=== PATIENT | male | born 1935 | race Caucasian/White ===

== ENCOUNTER 2016-07-05 03:15 | Emergency (ER) | payer OTHER ==
[2016-07-05 03:23] VITALS: BP 135/96; PULSE 93; RESP 20; TEMP 97.5; O2SAT 93
--- NOTE | 2016-07-05 03:36 | EDPHY ---
H & P Stated Complaint: diff breathing with prod cough starting tonight Time Seen by Provider: 07/05/16 03:27 HPI/ROS: HPI The patient presents with cough which has been present for the last 6 months intermittently but was worse tonight. He often times experiences it at night, productive of phlegm. He awakes, cough several times and is able to produce of phlegm, then is able to go back to sleep. However, tonight he was not able to go back to sleep and was concerned. He has not had any fevers or chills. He does not have chest pain. He has not had any rhinorrhea or sore throat. He says he felt short of breath when he was coughing, however now he feels fine. He believes he over produces saliva, because of a dental bridge that he has and this causes him to cough. He wonders if anxiety is playing a role. REVIEW OF SYSTEMS Constitutional: No fever, no chills. Eyes: No discharge. ENT: No sore throat. Cardiovascular: No chest pain, no palpitations. Respiratory: See HPI Gastrointestinal: No abdominal pain, no vomiting. Genitourinary: No hematuria. Musculoskeletal: No back pain. Skin: No rashes. Neurological: No headache. PMHx: History of asthma, though says he does not have any symptoms currently Soc Hx: Lives at home with his PHYSICAL General Appearance: Alert, no distress Eyes: Pupils equal and round no pallor or injection ENT, Mouth: Mucous membranes moist Respiratory: There are no retractions, lungs are clear to auscultation Cardiovascular: Regular rate and rhythm Gastrointestinal: Abdomen is soft and non-tender, no masses, bowel sounds normal Neurological: A&O, moves all extremities Skin: Warm and dry, no rashes Musculoskeletal: Neck is supple non tender Extremities: symmetrical, full range of motion Psychiatric: Patient is oriented X 3, there is no agitation Source: Patient Exam Limitations: No limitations - Personal History Current Tetanus/Diphtheria Vaccine: Yes Current Tetanus Diphtheria and Acellular Pertussis (TDAP): Yes Tetanus Vaccine Date: less than 5 years - Medical/Surgical History Hx Asthma: Yes Hx Chronic Respiratory Disease: No Hx Diabetes: No Hx Cardiac Disease: No Hx Renal Disease: No Hx Cirrhosis: No Hx Alcoholism: No Hx HIV/AIDS: No Hx Splenectomy or Spleen Trauma: No Other PMH: BPH, GERD, heart murmur, asthma. bilateral ACL repairs, left lower leg ORIF - Social History Smoking Status: Never smoked Constitutional: Initial Vital Signs Temperature (C) 36.4 C 07/05/16 03:20 Heart Rate 93 07/05/16 03:20 Respiratory Rate 20 07/05/16 03:20 Blood Pressure 135/96 H 07/05/16 03:20 O2 Sat (%) 93 07/05/16 03:20 O2 Delivery Mode Room Air Allergies/Adverse Reactions: Penicillins Allergy (Verified 07/05/16 03:18) Home Medications: Medication Instructions Recorded For Gerd 07/05/16 For Prostate 07/05/16 Medical Decision Making - Diagnostics Imaging: Chest x-ray two view shows no infiltrate, no cardiomegaly, interpreted by me, radiology interpretation is pending. Differential Diagnosis: This is a very pleasant 80-year-old man with remote history of asthma who presents from home with a cough which woke him from sleep tonight, now resolved. He has been having this cough intermittently for the last 6 months at night since he had a dental bridge put in. He thinks this is causing excessive saliva production. Differential diagnosis includes postnasal drip, GERD, pneumonia. In the emergency room, chest x-ray was performed and was unremarkable. I think he likely has postnasal drip or excessive saliva causing his cough and I have explained this to him. I will give him a dose of Sudafed he here and he has Mucinex at home. I have encouraged him to follow up with his primary care doctor this week and he says he will be able to do this. Departure - Departure Disposition: Home, Routine, Self-Care Clinical Impression: Post-nasal drip Condition: Good Instructions: Pseudoephedrine (By mouth), Antitussive/Decongestant (By mouth) Additional Instructions: Please return to the emergency room if your worse in any way. You should follow up with your doctor this week. Referrals: LUÍS LYNN [Primary Care Provider] - As per Instructions
[2016-07-05] MEDS ORDERED: PSEUDOEPHEDRINE HCL 30 MG TAB PO ONE (03:49)
== END 2016-07-05 04:10 | disposition home or self-care (01) ==
DX: R09.82 Postnasal drip (principal); J45.909 Unspecified asthma, uncomplicated

== ENCOUNTER 2016-07-18 20:54 | Inpatient (IN) | payer OTHER ==
--- NOTE | 2016-07-18 22:17 | CPEKG ---
Heart Rate: 59 RR Interval: 1017 P-R Interval: 212 QRSD Interval: 78 QT Interval: 420 QTC Interval: 416 P [place]: 74 QRS [place]: 18 T Wave [place]: 54 EKG Severity - NORMAL ECG - EKG Impression: SINUS RHYTHM Electronically Signed By: Phoebe Liang 19-Jul-2016 16:27:15
[2016-07-18 22:39] LABS: % IMMATURE GRANULYOCYTES 0.4 % (0.0-1.1); ABSOLUTE IMMATURE GRANULOCYTES 0.03 10^3/uL (0.00-0.10); ADD DIFF? NO; ADD MORPH? NO; ADD SCAN? NO; ATYPICAL LYMPHOCYTE FLAG 0 (0-99); FRAGMENT RBC FLAG 0 (0-99); HEMATOCRIT 37.4 % (40.0-51.0); HEMOGLOBIN 13.9 g/dL (13.7-17.5); LEFT SHIFT FLG 0 (0-99); LIPEMIA HEMOLYSIS FLAG 90 (0-99); MEAN CELL HEMOGLOBIN 33.1 pg (27.9-34.1); MEAN CELL HEMOGLOBIN CONCENTR. 37.2 g/dL (32.4-36.7); MEAN PLATELET VOLUME 10.8 fL (8.7-11.7); PLATELET CLUMPS FLAG 10 (0-99); PLATELET COUNT 184 10^3/uL (150-400); RED CELL DISTRIBUTION WIDTH 13.4 % (11.5-15.2)
[2016-07-18 22:41] LABS: ALANINE AMINOTRANSFERASE 59 IU/L (21-72); ALBUMIN 4.1 g/dL (3.5-5.0); ALKALINE PHOSPHATASE 72 IU/L (38-126); ANION GAP 11 mEq/L (8-16); ASPARTATE AMINOTRANSFERASE 48 IU/L (17-59); BILIRUBIN-CONJUGATED 0.8 mg/dL (0.0-0.5); BILIRUBIN-UNCONJUGATED 2.2 mg/dL (0.0-1.1); CALCIUM 8.9 mg/dL (8.5-10.4); CARBON DIOXIDE 23 mEq/l (22-31); CHLORIDE 110 mEq/L (97-110); CREATININE 0.8 mg/dL (0.7-1.3); GLOMERULAR FILTRATION RATE > 60; GLUCOSE 108 mg/dL (70-100); POTASSIUM 4.1 mEq/L (3.5-5.2); SODIUM 144 mEq/L (134-144)
[2016-07-18 22:51] LABS: COLOR AMBER; LEUKOCYTE ESTERASE,URINE 2+ (NEGATIVE); NITRITE,URINE NEGATIVE (NEGATIVE)
[2016-07-18 22:52] LABS: TROPONIN I < 0.012 ng/mL (0-0.034)
[2016-07-18 23:03] LABS: BACTERIA 1+ /hpf (NONE SEEN); MUCUS TRACE /lpf (NONE-1+); WBC,URINE 50-182 /hpf (0-3)
--- NOTE | 2016-07-18 23:32 | EDPHY ---
H & P Stated Complaint: abd pain - Personal History Current Tetanus/Diphtheria Vaccine: Yes Current Tetanus Diphtheria and Acellular Pertussis (TDAP): Yes Tetanus Vaccine Date: less than 5 years - Medical/Surgical History Hx Asthma: Yes Hx Chronic Respiratory Disease: No Hx Diabetes: No Hx Cardiac Disease: No Hx Renal Disease: No Hx Cirrhosis: No Hx Alcoholism: No Hx HIV/AIDS: No Hx Splenectomy or Spleen Trauma: No Other PMH: BPH, GERD, heart murmur, asthma. bilateral ACL repairs, left lower leg ORIF - Social History Smoking Status: Never smoked Time Seen by Provider: 07/18/16 21:20 HPI/ROS: Chief complaint: Abdominal pain History of present illness: This is an 81-year-old male who presents to the emergency department for evaluation of abdominal pain. Patient reports the onset of symptoms this afternoon. He reports the onset of pain after eating a sandwich and a piece of cake. Has been intermittent in nature. It is in the epigastric and right upper quadrant region. He has had associated nausea and vomiting. He denies alleviating factors. He denies other associated signs or symptoms including no fevers, no diarrhea or constipation, no urinary symptoms, no chest pain or shortness of breath. Review of systems: A 10 point review of systems was obtained and other than described above was negative (Nikhil Mccoy) - Physical Exam Exam: General Appearance: Alert, nontoxic, tremulous. Eyes: Pupils equal and round no pallor or injection. ENT, Mouth: Mucous membranes moist. Respiratory: There are no retractions, lungs are clear to auscultation. Cardiovascular: Regular rate and rhythm. Gastrointestinal: Bowel sounds hypoactive. Abdomen is soft. There is minor tenderness in epigastric and right upper quadrant. No peritoneal signs. Neurological: Alert and oriented. Strength and sensation intact and symmetrical. Skin: Warm and dry, no rashes. Musculoskeletal: Neck is supple non tender. Etremities are symmetrical, full range of motion. Psychiatric: Patient is oriented X 3, there is no agitation. (Nikhil Mccoy) Constitutional: Initial Vital Signs Temperature (C) 36.8 C 07/18/16 21:09 Heart Rate 69 07/18/16 21:09 Respiratory Rate 16 07/18/16 21:09 Blood Pressure 139/72 H 07/18/16 21:09 O2 Sat (%) 99 07/18/16 21:09 O2 Delivery Mode Room Air Allergies/Adverse Reactions: Penicillins Allergy (Verified 07/18/16 21:04) Home Medications: Medication Instructions Recorded Omeprazole [Prilosec 20 mg] 20 mg PO DAILY 07/05/16 Beclomethasone Qvar 80 [Qvar 80 1 puffs IH BIDI 07/18/16 (*)] Finasteride [Proscar 5 MG (*)] 5 mg PO DAILY 07/18/16 Fluticasone Nasal [Flonase Nasal 1 sprays NASAL BID 07/18/16 [place] (RX)] Medical Decision Making - Diagnostics EKG Interpretation: Twelve lead EKG interpreted by me in [facility]. Sinus rhythm without acute ischemic changes. (Debbie Dennison) Imaging: Right upper quadrant ultrasound shows multiple gallstones One view abdominal x-ray consistent constipation (Nikhil Mccoy) ED Course/Re-evaluation: Patient discussed with my secondary supervising physician Dr. Debbie Dennison. Patient presents to the emergency department for evaluation of abdominal pain. Ultimately he appears to have a pancreatitis. Patient will be admitted to the hospitalist service, Dr. Patricia Mcmahan, for further evaluation and care. Plan has been discussed with the patient voiced understanding and agreement with it. (Nikhil Mccoy) Differential Diagnosis: Included but not limited to gastritis, gastroenteritis, biliary tract disease, pancreatitis, colitis, bowel obstruction, urinary tract disease (Nikhil Mccoy) Other Provider: The patient was evaluated and managed by the physician market research assistant. I have reviewed this chart and I agree with the findings and plan of care as documented , as indicated by my signature. I am the secondary supervising physician. This patient is an 81 year old male with acute RUQ and epigastric pain of over 8 hours duration, waxing and waning. The pain began after eating. He has never had similar pain. No fever. He denies nausea, vomiting (other than one episode of induced emesis), diarrhea, dysuria, back or flank pain. On exam his lungs are clear, abdomen with RUQ and midepigastric tenderness but no peritoneal signs, heart is regular. CBC shows nl WBC. Bilirubin and lipase are elevated. Ultrasound shows cholelithiasis without cholecystitis. UA is abnormal but he remains without urinary symptoms and I do not recommend antibiotics at this time. Urine is being cultured. He is being admitted with gallstone pancreatitis. (Debbie Dennison) - Data Points Laboratory Results: Laboratory Results 07/18/16 22:02 07/18/16 22:02 Medications Given: Discontinued Medications Lorazepam (Ativan Injection) 0.5 - 1 mg IVP ONCE PRN PRN Reason: X 1 FOR ANXIETY Stop: 07/19/16 07:00 Last Admin: 07/19/16 02:06 Dose: 0.5 mg Departure - Departure Disposition: [facility] Inpatient Acute Clinical Impression: Pancreatitis Qualifiers: Chronicity: acute Pancreatitis type: unspecified pancreatitis type Acute pancreatitis complication: unspecified Qualified Code(s): K85.90 - Acute pancreatitis without necrosis or infection, unspecified Condition: Fair
[2016-07-19] MEDS ORDERED: ONDANSETRON 4 MG/2 ML VIAL IVP PRN (00:41)
[2016-07-19] MEDS ORDERED: ONDANSETRON DISINTEGRATING 4 MG TAB PO PRN (00:41)
[2016-07-19] MEDS ORDERED: ACETAMINOPHEN 325 MG TAB PO PRN (00:41)
[2016-07-19] MEDS: ZOLPIDEM TARTRATE 5 MG TAB PO PRN ×2 (00:58→20:02)
--- NOTE | 2016-07-19 01:30 | GHP ---
DATE OF ADMISSION: 07/18/2016 CHIEF COMPLAINT: Abdominal pain. HISTORY OF PRESENT ILLNESS: A very pleasant 81-year-old male with limited past medical history pres ents with sudden onset of epigastric and right upper quadrant pain the afternoon of presentation. P leonardo reports being in his normal state of health for the several days prior with no abdominal disc omfort, subjective fevers or chills, nausea, vomiting, or changes in his bowel habits. Reports kobi ng himself a sandwich with pork tenderloin he had prepared and developing sudden onset of sharp pene trating epigastric pain soon after eating that sandwich. Patient's says the pain spontaneously reso lved and afterward, he ate some birthday cake and then had recurrence of the pain, again sharp, epig astric, and some radiation to the right upper quadrant. He forced himself to vomit thinking that po tentially, he had eaten something bad, and the pain did not resolve even after forceful vomiting. T herefore, the patient presented to the emergency department. Denied any preceding nausea or vomitin g. Denied again any diarrhea, changes in his bowel habits. Reports a history of BPH but no recent dysuria or hematuria. Patient denied any rashes, chest pain, shortness of breath, sore throat. Has had some nasal congestion his primary care has been treating with Flonase. That has been unchanged . Patient has never had an episode of epigastric pain similar to this or any history of preceding p ancreatitis. PAST MEDICAL HISTORY: 1. BPH. 2. Gastroesophageal reflux disease. 3. New tremor of the hands. Has outpatient Neurology scheduled. 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 Denies tobacco. Very rare alcohol. No illicit drugs or marijuana. ADVANCED DIRECTIVES: Patient is full cor, full tube. His daughter, Aquiles, would be his medical dec ision maker. REVIEW OF SYSTEMS: A 10-point review of systems is negative with the exception of that reported in the HPI. PHYSICAL EXAMINATION: VITAL SIGNS: Blood pressure 134/75, heart rate 75, respiratory rate 16, 95% on room air, 36.8. GENERAL: This is a very healthy-appearing elderly male in no acute distress. H EENT: Notable for moist mucous membranes. Eye exam is negative for any icterus. CARDIAC: Patient is regular rate and rhythm. PULMONARY: Good respiratory effort. Clear to auscultation bilaterall y. GASTROINTESTINAL: Positive bowel sounds. Abdomen is tender to palpation in the epigastrium as well as the right upper quadrant. No rebound or guarding. MUSCULOSKELETAL: Negative for any lower extremity edema. SKIN: Negative for any rashes. NEUROLOGIC: He is alert and oriented x3. PSYCH IATRIC: He is pleasant and cooperative on interview and examination. DATA: White count is normal at 7.7, hematocrit 37.4. Creatinine is 0.8, total bilirubin elevated a t 3.0. AST and ALT are normal. Troponin is less than 0.012. Lipase is elevated at 4765. Urinalys is is abnormal with protein, ketones, blood, and white blood cells. Abdominal x-ray, which I person ally reviewed and interpreted, shows no dilated loops or findings consistent with small bowel obstru ction. EKG, which I personally reviewed and interpreted, shows sinus rhythm, normal axis, normal in tervals, with no acute ST-T changes. Abdominal ultrasound, which I reviewed, does show cholelithias is without cholecystitis. ASSESSMENT AND PLAN: This is an 81-year-old male presenting with acute abdominal pain. 1. Acute pancreatitis presumed secondary to gallstones. Patient has elevation in his bilirubin, vi sualized stones on ultrasound, and pain consistent, as well as a lipase greater than 4000. Will adm it the patient. Make him n.p.o. Fluid resuscitate with IV normal saline. Provide IV pain medicati ons as needed. Will recheck the patient's liver function tests, lipase, and lipids to monitor his c linical progression. My hope is the patient has passed the stone and will be clinically improved in the morning and able to advance his diet. Will simply need to monitor his clinical progression. 2. Abnormal urinalysis. Patient did not have symptoms at presentation. No leukocytosis, no fever. Will send the urine for culture, but not empirically treat at this time. 3. Benign prostatic hypertrophy. Will continue his home medications when his medicines are reconci led. He denies difficulty passing urine on presentation. 4. Normocytic anemia. Will recheck CBC in the morning. 5. Prophylaxis: With Lovenox. 6. Diet: N.p.o. with IV fluids. DISPOSITION: Expecting greater than 2 midnights as the patient is presenting with acute pancreatiti s requiring medical management. Difficult to ascertain what his clinical course will be at this seven e but suspect it will require greater than 1 midnight to safely hydrate and advance his diet. I hav e discussed the case with the emergency room physician. Patient will be triaged to the medical[facility] floor for care. /[id number]/MODL
[2016-07-19] MEDS: NS 1,000 ML IV SCH ×3 (01:41→18:18)
[2016-07-19] MEDS ORDERED: LORazepam 2 MG/ML INJ IVP PRN (02:00)
[2016-07-19 05:17] LABS: % IMMATURE GRANULYOCYTES 0.2 % (0.0-1.1); ABSOLUTE IMMATURE GRANULOCYTES 0.01 10^3/uL (0.00-0.10); ADD DIFF? NO; ADD MORPH? NO; ADD SCAN? NO; ATYPICAL LYMPHOCYTE FLAG 0 (0-99); FRAGMENT RBC FLAG 0 (0-99); HEMATOCRIT 33.9 % (40.0-51.0); HEMOGLOBIN 12.7 g/dL (13.7-17.5); LEFT SHIFT FLG 0 (0-99); MEAN CELL HEMOGLOBIN 34.1 pg (27.9-34.1); MEAN CELL HEMOGLOBIN CONCENTR. 37.5 g/dL (32.4-36.7); MEAN CELL VOLUME 91.1 fL (81.5-99.8); MEAN PLATELET VOLUME 11.1 fL (8.7-11.7); PLATELET CLUMPS FLAG 0 (0-99); PLATELET COUNT 174 10^3/uL (150-400); RED BLOOD CELL COUNT 3.72 10^6/uL (4.40-6.38); RED CELL DISTRIBUTION WIDTH 13.2 % (11.5-15.2)
[2016-07-19 05:34] LABS: LIPEMIA HEMOLYSIS FLAG 100 (0-99)
[2016-07-19 05:39] LABS: ALANINE AMINOTRANSFERASE 43 IU/L (21-72); ALBUMIN 3.5 g/dL (3.5-5.0); ALKALINE PHOSPHATASE 61 IU/L (38-126); ANION GAP 8 mEq/L (8-16); ASPARTATE AMINOTRANSFERASE 35 IU/L (17-59); BILIRUBIN,TOTAL 3.1 mg/dL (0.1-1.4); CALCIUM 8.6 mg/dL (8.5-10.4); CARBON DIOXIDE 25 mEq/l (22-31); CHLORIDE 111 mEq/L (97-110); CHOLESTEROL 131 mg/dL (140-220); CHOLESTEROL/HDL RATIO 2.98 RATIO (1.00-4.97); CREATININE 0.8 mg/dL (0.7-1.3); GLOMERULAR FILTRATION RATE > 60; GLUCOSE 94 mg/dL (70-100); HIGH DENSITY LIPOPROTEIN 44 mg/dL (40-65); LDL/HDL RATIO 1.73 RATIO (1.00-3.64); LOW DENSITY LIPOPROTEIN 76 mg/dL (80-100); NON-HIGH DENSITY LIPOPROTEIN 87 mg/dL (90-129); SODIUM 144 mEq/L (134-144); TOTAL PROTEIN 6.1 g/dL (6.3-8.2); TRIGLYCERIDE 58 mg/dL (40-150); VERY LOW DENSITY LIPOPROTEINS 11 mg/dL (8-25)
[2016-07-19 05:45] LABS: BILIRUBIN-CONJUGATED 0.3 mg/dL (0.0-0.5); BILIRUBIN-UNCONJUGATED 2.8 mg/dL (0.0-1.1)
[2016-07-19] MEDS: ENOXAPARIN 40 MG/0.4 ML SYR SC SCH (08:31)
--- NOTE | 2016-07-19 08:42 | HOSPPROG ---
Hospitalist Progress Note Assessment/Plan: Patient is a 81 Year old male who presented to the emergency room with sudden onset of epigastric and right upper quadrant pain. Today is my 1st encounter with the patient. Chart reviewed. * Acute pancreatitis most likely secondary to gallstones - bilirubin remains elevated - LFTs were overall stable - abdominal ultrasound shows cholelithiasis without gallbladder wall thickening - abdominal x-ray shows constipation - for now we will give supportive treatment he may need his gallbladder out in the future - discussed this with Dr Ling who will see the patient - symptoms have completely resolved/ will continue iv fluids/ trial of cl liquids - lipase 4765 on admit, now 1210 *pyuria with hematuria -urine cx pending -no c/o pain *BPH -home meds continued *Normocytic anemia -follow *stressors at home -his has Parkinson's / he is concerned about her/ for now his son is with her *DVT prophylaxis -LMWH *PLan: Repeat labs in a.m./ Dr Ling to see, cl liquids Subjective: rafael has no further abdominal pain and wants to eat. Objective: Vital Signs Temp Pulse Resp BP Pulse Ox 36.4 C 56 L 16 129/72 H 94 07/19/16 07:50 07/19/16 07:50 07/19/16 07:50 07/19/16 07:50 07/19/16 07:50 Laboratory Results 07/19/16 04:41 07/19/16 04:41 07/18/16 07/19/16 07/20/16 05:59 05:59 05:59 Intake Total 650 Balance 650 - Physical Exam Constitutional: no apparent distress, other (slender) Eyes: PERRL Ears, Nose, Mouth, Throat: hearing normal Cardiovascular: regular rate and rhythym, no murmur, rub, or gallop Respiratory: no respiratory distress Skin: warm, normal color Musculoskeletal: no muscle tenderness Neurologic: AAOx3 Psychiatric: interacting appropriately, not anxious ICD10 Worksheet Patient Problems: Problems Problem Status Onset Pancreatitis Acute
[2016-07-19] MEDS ORDERED: FLUTICASONE NASAL 120 SPRAYS/16 GM MDI EACHNARE SCH (09:00)
[2016-07-19] MEDS: BECLOMETHASONE QVAR 80 MDI IH SCH ×3 (10:03→20:01)
--- NOTE | 2016-07-19 12:21 | GCON ---
HISTORY OF PRESENT ILLNESS: An 81-year-old male with diagnosis of gallstone pancreatitis. Patient reports pain began abruptly yesterday after eating some birthday cake and then subsided. Later in t he evening, the pain became more severe and he drove himself to the emergency room. He reports upon arriving at the hospital, his pain subsided. Patient has never had this kind of abdominal pain bef ore. He did try some self-induced vomiting at home but otherwise, has had no significant nausea or vomiting. He denies any bowel changes. He has no history of abdominal surgery. He does have histo ry of [place] filter placement for pulmonary embolism. He is not on any anticoagulation normally . This morning, he reports his pain is all gone, he is very thirsty, and he is very concerned about his whom he cares for at home. She has Parkinson. She also has a recent pelvic fracture. PAST MEDICAL HISTORY: GERD, tremor of left hand Neurology consult pending as outpatient, benign pro static hypertrophy. SOCIAL HISTORY: Patient is retired from [employer]. Nonsmoker, rare alcohol use. Lives with his , for whom he cares. She has Parkinson. PAST SURGICAL HISTORY: [place] filter placement for pulmonary embolism after trauma a few years ago. REVIEW OF SYSTEMS: Negative 10-point review of systems. PHYSICAL EXAM: GENERAL: Patient is a pleasant, alert male, in no apparent distress, non-jaundice. HEAD AND NECK: Normocephalic, atraumatic. CHEST: Clear to auscultation bilaterally. HEART: Reg ular rhythm and rate. ABDOMEN: No scars. Soft, nontender to palpation in all 4 quadrants. EXTREM ITIES: No lower extremity edema. LABORATORY STUDIES: Normal white blood cell count, hematocrit of 33.9. Lipase of 1210. Total bilir ubin 3.01, unconjugated bilirubin 2.8. IMAGING: Abdominal ultrasound demonstrates cholelithiasis with multiple gallstones. IMPRESSION: An 81-year-old male with gallstone pancreatitis. RECOMMENDATION: Given the fact the patient is improving overall, we will therefore plan to remove h is gallbladder on Wednesday, July 20, 2016. Patient has been seen and examined by Dr. Ling. Risks, including common bile duct injury, bleeding, infection, conversion to open procedure, were discussed with the patient. It was also discussed the fact that he may need an ERCP after surgery depending on what the intraoperative cholangiogram demonstrates. It is okay for him to drink some water today and then n.p.o. after midnight. Consent has been placed in the front of the paper chart. /[id number]/MODL
[2016-07-19] MEDS: FLUTICASONE NASAL 120 SPRAYS/16 GM MDI EACHNARE SCH (19:59)
[2016-07-20] MEDS: BECLOMETHASONE QVAR 80 MDI IH SCH ×2 (06:06→17:18)
[2016-07-20] MEDS ORDERED: BUPIVACAINE 0.5% 30 ML SDV ONE ×2 (08:03→08:27)
[2016-07-20] MEDS ORDERED: IOTHALAMATE MEG (CONRAY) 50 ML VIAL IV ONE (08:28)
[2016-07-20] MEDS ORDERED: MIDAZOLAM 2 MG/2 ML VIAL ONE (08:36)
[2016-07-20] MEDS ORDERED: fentaNYL 100 MCG/2 ML INJ ONE (08:41)
[2016-07-20] MEDS ORDERED: PROPOFOL/EMULSION 500 MG/50 ML BOTTLE IV ONE (08:41)
[2016-07-20] MEDS ORDERED: REMIFENTANIL HCL 1 MG VIAL ONE (08:41)
[2016-07-20 08:42] LABS: HEMATOCRIT 35.3 % (40.0-51.0); MEAN CELL HEMOGLOBIN 32.9 pg (27.9-34.1); MEAN CELL HEMOGLOBIN CONCENTR. 36.8 g/dL (32.4-36.7); MEAN CELL VOLUME 89.4 fL (81.5-99.8); RED BLOOD CELL COUNT 3.95 10^6/uL (4.40-6.38); RED CELL DISTRIBUTION WIDTH 13.2 % (11.5-15.2)
[2016-07-20] MEDS ORDERED: ONDANSETRON 4 MG/2 ML VIAL ONE (08:42)
[2016-07-20] MEDS ORDERED: KETOROLAC 30 MG/1 ML SDV ONE (08:42)
[2016-07-20] MEDS ORDERED: ROCURONIUM 50 MG/5 ML VIAL ONE (08:42)
[2016-07-20] MEDS ORDERED: LIDOCAINE 2% 5 ML SDV ONE (08:42)
[2016-07-20] MEDS ORDERED: DEXAMETHASONE 4 MG/ML VIAL ONE (08:42)
[2016-07-20] MEDS ORDERED: PHENYLEPHRINE HCL 100 MCG/ML SYR ONE (08:55)
[2016-07-20] MEDS ORDERED: cefOXitin SODIUM 2 GM in D5W 100 ML IV ONE ×2 (09:00→09:49)
[2016-07-20 09:09] LABS: ALBUMIN 3.5 g/dL (3.5-5.0); BILIRUBIN,TOTAL 4.4 mg/dL (0.1-1.4); BILIRUBIN-CONJUGATED 0.3 mg/dL (0.0-0.5); BILIRUBIN-UNCONJUGATED 4.1 mg/dL (0.0-1.1); TOTAL PROTEIN 6.1 g/dL (6.3-8.2)
[2016-07-20] MEDS ORDERED: epHEDrine SULFATE 10 MG/ML SYR ONE (09:15)
[2016-07-20] MEDS ORDERED: GLYCOPYRROLATE 0.2 MG/1 ML VIAL ONE ×2 (09:50)
[2016-07-20] MEDS ORDERED: NEOSTIGMINE METHYLSULFATE 5 MG/5 ML SYR ONE (09:50)
--- NOTE | 2016-07-20 10:09 | POSTOPPROG ---
Post Op Note Date of Operation: 07/20/16 Surgeon: Ilan Ling Hand Profiler: JOSH Maldonado PA-C, MS Anesthesiologist: Marcin Silva Anesthesia: GET(General Endotracheal) Pre-op Diagnosis: Gallstone pancreatitis, Cholelithiasis Post-op Diagnosis: same Procedure: Laparoscopic cholecystectomy, attempted IOC Findings: No gross signs of major edema/pancreatitis, very small cystic duct Inf/Abcess present in the surg proc area at time of surgery?: No EBL: Minimal Complications: none Specimen(s): Gallbladder to pathology
[2016-07-20] MEDS: ENOXAPARIN 40 MG/0.4 ML SYR SC SCH (10:51)
[2016-07-20] MEDS: FLUTICASONE NASAL 120 SPRAYS/16 GM MDI EACHNARE SCH ×2 (11:22→17:18)
[2016-07-20] MEDS: FINASTERIDE 5 MG TAB PO SCH (11:28)
--- NOTE | 2016-07-20 15:53 | SOAPPROG ---
SOAP Progress Note Assessment/Plan: Assessment/Plan: 81 Y M s/p lap [place], gallstone pancreatitis, POD#0. Lipase normalized. Wounds ok. AFVSS. Pain controlled. Eager to go home. Advance to low fat diet. Likely home in am if ok with medicine. 07/20/16 15:52 Objective: Vital Signs Temp Pulse Resp BP Pulse Ox 36.4 C 66 14 125/68 H 96 07/20/16 14:25 07/20/16 14:25 07/20/16 14:25 07/20/16 14:25 07/20/16 14:25 Laboratory Results 07/20/16 07:33 07/19/16 04:41 07/19/16 07/20/16 07/21/16 05:59 05:59 05:59 Intake Total 246 757 1942 Output Total 900 730 Balance 650 -750 670 ICD10 Worksheet Patient Problems: Problems Problem Status Onset Pancreatitis Acute
--- NOTE | 2016-07-20 17:05 | HOSPPROG ---
Hospitalist Progress Note Assessment/Plan: Patient is a 81 Year old male who presented to the emergency room with sudden onset of epigastric and right upper quadrant pain. * Acute pancreatitis most likely secondary to gallstones -symptoms resolved *Cholelithiasis - postop day number 0 for cholecystectomy - patient is tolerating clear liquids well *pyuria with hematuria -urine cx likely a skin contaminant will follow -no c/o pain *BPH -home meds continued *Normocytic anemia -follow *stressors at home -his has Parkinson's / he is concerned about her/ for now his son is with her *DVT prophylaxis -LMWH *PLan: trial of clear liquids this afternoon. Patient is doing well will aim to discharge him tomorrow Subjective: Soham is feeling well. Says he can't eat and drink well. Anxious to go home Objective: Vital Signs Temp Pulse Resp BP Pulse Ox 36.4 C 64 17 125/72 H 96 07/20/16 15:58 07/20/16 15:58 07/20/16 15:58 07/20/16 15:58 07/20/16 15:58 Laboratory Results 07/20/16 07:33 07/19/16 04:41 07/19/16 07/20/16 07/21/16 05:59 05:59 05:59 Intake Total 599 096 0546 Output Total 900 730 Balance 650 -750 670 - Physical Exam Constitutional: no apparent distress, appears nourished, No not in pain ( mild incisional pain) Ears, Nose, Mouth, Throat: hearing normal Cardiovascular: regular rate and rhythym Respiratory: no respiratory distress Gastrointestinal: No normoactive bowel sounds ( hypoactive) Skin: warm Musculoskeletal: no muscle tenderness Neurologic: AAOx3 Psychiatric: interacting appropriately, not anxious ICD10 Worksheet Patient Problems: Problems Problem Status Onset Pancreatitis Acute
[2016-07-20] MEDS: HYDROCODONE/APAP 5/325 TAB PO PRN (20:40)
[2016-07-21 05:46] LABS: ANION GAP 9 mEq/L (8-16); CARBON DIOXIDE 23 mEq/l (22-31); CHLORIDE 108 mEq/L (97-110); GLUCOSE 103 mg/dL (70-100); POTASSIUM 4.2 mEq/L (3.5-5.2); SODIUM 140 mEq/L (134-144)
[2016-07-21 05:47] LABS: ALANINE AMINOTRANSFERASE 53 IU/L (21-72); ALBUMIN 3.1 g/dL (3.5-5.0); ALKALINE PHOSPHATASE 58 IU/L (38-126); ASPARTATE AMINOTRANSFERASE 41 IU/L (17-59); BILIRUBIN,TOTAL 3.7 mg/dL (0.1-1.4); CALCIUM 8.6 mg/dL (8.5-10.4); CREATININE 0.9 mg/dL (0.7-1.3); GLOMERULAR FILTRATION RATE > 60; TOTAL PROTEIN 5.6 g/dL (6.3-8.2)
[2016-07-21 05:53] LABS: BILIRUBIN-CONJUGATED 0.4 mg/dL (0.0-0.5); BILIRUBIN-UNCONJUGATED 3.3 mg/dL (0.0-1.1)
[2016-07-21] MEDS: BECLOMETHASONE QVAR 80 MDI IH SCH (05:57)
[2016-07-21] MEDS: FINASTERIDE 5 MG TAB PO SCH (07:15)
[2016-07-21 08:24] VITALS: RESP 18; TEMP 97.9
--- NOTE | 2016-07-21 09:10 | HOSPPROG ---
Hospitalist Progress Note Assessment/Plan: Patient is a 81 Year old male who presented to the emergency room with sudden onset of epigastric and right upper quadrant pain. * Acute pancreatitis most likely secondary to gallstones -symptoms resolved *Cholelithiasis - postop day number 1 for cholecystectomy -has some mild abdominal distention, but no pain *pyuria with hematuria -urine cx likely a skin contaminant will follow -no c/o pain *BPH -home meds continued *Normocytic anemia -follow *stressors at home -his has Parkinson's / he is concerned about her/ for now his son is with her *DVT prophylaxis -LMWH *PLan:dc today after lunch as long as he stable Subjective: Soham is feeling well/anxious to get home with his . Objective: Vital Signs Temp Pulse Resp BP Pulse Ox 36.6 C 73 18 95/54 L 95 07/21/16 08:23 07/21/16 08:23 07/21/16 08:23 07/21/16 08:23 07/21/16 08:23 Laboratory Results 07/20/16 07:33 07/21/16 04:40 07/20/16 07/21/16 07/22/16 05:59 05:59 05:59 Intake Total 150 1700 Output Total 900 1250 Balance -750 450 - Physical Exam Constitutional: no apparent distress, appears nourished, not in pain Eyes: PERRL Ears, Nose, Mouth, Throat: hearing normal Respiratory: no respiratory distress Gastrointestinal: No normoactive bowel sounds (hypoactive, abdomen slightly distended) Skin: warm, normal color Musculoskeletal: full muscle strength Neurologic: AAOx3 Psychiatric: interacting appropriately, not anxious ICD10 Worksheet Patient Problems: Problems Problem Status Onset Pancreatitis Acute
[2016-07-21] MEDS: FLUTICASONE NASAL 120 SPRAYS/16 GM MDI EACHNARE SCH (09:21)
[2016-07-21] MEDS ORDERED: LACTULOSE 20 GM/30 ML UDCUP PO PRN (10:09)
[2016-07-21] MEDS ORDERED: POLYETHYLENE GLYCOL 3350 17 GM PKT PO PRN (10:09)
[2016-07-21] MEDS ORDERED: BISACODYL 10 MG SUPP PR PRN (10:09)
[2016-07-21] MEDS ORDERED: MAGNESIUM HYDROXIDE 30 ML UDCUP PO PRN (10:09)
[2016-07-21] MEDS ORDERED: BISACODYL 10 MG SUPP PR ONE (10:12)
--- NOTE | 2016-07-21 10:25 | SOAPPROG ---
SOAP Progress Note Assessment/Plan: Assessment/Plan: 81 Y M s/p lap chester, gallstone pancreatitis, POD#1. Doing well. Wounds ok. Eating well. Minimal pain. LFTs normal, aside from chronically elevated unconjugated bili. Do not suspect obstruction. Ok to d/c to home on low fat diet with f/u next week. All post op d/c instructions d/w'ed pt this am. PE: alert, nad, gets up from chair easily no appreciable jaundice no wob abd soft, inc cdi 07/21/16 10:23 Objective: Vital Signs Temp Pulse Resp BP Pulse Ox 36.6 C 73 18 95/54 L 95 07/21/16 08:23 07/21/16 08:23 07/21/16 08:23 07/21/16 08:23 07/21/16 08:23 Laboratory Results 07/20/16 07:33 07/21/16 04:40 07/20/16 07/21/16 07/22/16 05:59 05:59 05:59 Intake Total 150 1700 Output Total 900 1250 Balance -750 450 ICD10 Worksheet Patient Problems: Problems Problem Status Onset Pancreatitis Acute
[2016-07-21 11:10] VITALS: BP 109/63; PULSE 63; O2SAT 93
[2016-07-21] MEDS: HYDROCODONE/APAP 5/325 TAB PO PRN (11:15)
--- NOTE | 2016-07-21 14:14 | GDS ---
[f rep st] DISCHARGE SUMMARY DISCHARGE DIAGNOSES: 1. Gallstone pancreatitis. 2. Cholelithiasis, status post cholecystectomy. 3. Pyuria with hematuria. 4. Benign prostatic hypertrophy. 5. Normocytic anemia. 6. Increased stressors at home. CONSULTATIONS DURING STAY: Arcadio Cohen. HISTORY: Briefly, the patient is an 81-year-old male with a very limited past medical history. He presented to the emergency room with epigastric and right upper quadrant pain. He has had no abdomi nal discomfort, fevers, or chills. He made himself a salad with pork tender loin, and he had a sudd en onset of sharp epigastric pain soon after he ate the sandwich. It resolved afterwards. Then lat er, he had some birthday cake and the recurrence recurred. He was admitted and noted to have pancre atitis, likely secondary to stones. He improved rapidly with IV hydration. Lipase was elevated on admission and decreased quickly to 87. He was seen and evaluated by Dr. Ling. On 07/20, he had a laparoscopic cholecystectomy for gallstone pancreatitis and cholelithiasis. Today, he is eating and drinking well and is anxious to go home. HOSPITAL COURSE: 1. Acute pancreatitis secondary to gallstones. His symptoms have completely resolved. 2. Cholelithiasis. He is postop day #1 for cholecystectomy, doing well. 3. Pyuria. No signs or symptoms. 4. BPH. Home medications have been continued. 5. Normocytic anemia, stable. 6. Stressors at home. His has Parkinson's and his son has been taking care of her. He is anx ious to get home. DISCHARGE CONDITION: Stable. Blood pressure is 109/63. Heart rate is 62. Respiratory rate is 18. O2 sats on room air are 92%. Temperature is 36.6 Celsius. MEDICATIONS AT DISCHARGE: Please see the EMR. DISCHARGE INSTRUCTIONS: 1. No lifting greater than 15 pounds. Okay to shower. 2. Avoid fatty foods until he sees Dr. Ling. Greater than 30 minutes discharging and coordinating care. /[id number]/MODL
[2016-07-21] MEDS ORDERED: SENNOSIDES/DOCUSATE SODIUM TAB PO SCH (21:00)
--- NOTE | 2016-07-25 19:38 | GOP ---
[f rep st] OPERATIVE REPORT DATE OF OPERATION: 07/20/2016 SURGEON: Ilan Ling MD PORT STEWARD: Rosaura Plunkett PA-C ANESTHESIOLOGIST: Itz Burch DO PREOPERATIVE DIAGNOSIS: Gallstone pancreatitis. POSTOPERATIVE DIAGNOSIS: Gallstone pancreatitis. PROCEDURE PERFORMED: Laparoscopic cholecystectomy with attempted intraoperative cholangiography. FINDINGS: The patient was found to have no major signs of major edema or pancreatitis. He had a ve ry small cystic duct and multiple gallstones. DESCRIPTION OF PROCEDURE: The patient was taken to the operating room, where he received satisfacto ry general endotracheal anesthesia by Dr. Burch. He was placed in supine position, prepped an d draped in usual sterile fashion. A periumbilical incision was made. A Veress needle inserted. P neumoperitoneum was established. Trocar was introduced. Laparoscope was introduced. Good visualiz ation was obtained. Three other trocars were placed in the upper abdomen under direct vision. The gallbladder was elevated up. Adhesions were taken down. The cystic triangle was carefully exposed. The cystic duct and cystic artery were dissected free with care taken to avoid injury to the commo n duct. A good clear view was obtained. The cystic artery was multiply hemoclipped and divided. T he cystic duct was hemoclipped proximally. A cholangiogram catheter was brought in through a separa te stab incision and a short incision was made in the cystic duct. A cholangiogram catheter was int roduced, but it would not pass readily because the small duct, and finally the cholangiogram attempt was abandoned. The cystic duct was multiply hemoclipped and divided. The peritoneum of the gallbl adder was incised. The gallbladder was dissected free from the bed and hepatic fossa, and extracted through an upper midline port site. Hemostasis was assured. The wound was irrigated. Trocars wer e removed under direct vision. Trocar sites were closed with 0 Vicryl for the fascia, 4-0 Vicryl elliott bcuticular stitch for the skin. All layers infiltrated with 0.5% Marcaine. Blood loss was less radha n 5 cc. No complications. /[id number]/MODL
== END 2016-07-21 14:03 | disposition home or self-care (01) | DRG 417 ==
LOC: F3E 07-19 00:22
PROVIDERS: ADMIT Hospitalist; ATTEND Internal Medicine
PROC: 0FT44ZZ Resection of Gallbladder, Percutaneous Endoscopic Approach (ICD-10-PCS; principal; 2016-07-20 16:15)
DX: K80.20 Calculus of gallbladder without cholecystitis without obstruction (principal); K85.90 Acute pancreatitis without necrosis or infection, unspecified; K21.9 Gastro-esophageal reflux disease without esophagitis; J45.909 Unspecified asthma, uncomplicated; N39.0 Urinary tract infection, site not specified; R31.9 Hematuria, unspecified; N40.0 Benign prostatic hyperplasia without lower urinary tract symptoms; D64.9 Anemia, unspecified
CPT/HCPCS: J0694; J1100; J1650; J1885; J2250; J2370; J2405; J2704; J2710; J3010; Q9961

== ENCOUNTER 2016-07-25 11:36 | Emergency (ER) | payer OTHER ==
[2016-07-25 12:02] LABS: COLOR YELLOW; LEUKOCYTE ESTERASE,URINE NEGATIVE (NEGATIVE); NITRITE,URINE NEGATIVE (NEGATIVE)
--- NOTE | 2016-07-25 12:59 | EDPHY ---
H & P Stated Complaint: Having urinary frequency since ; denies dysuria Source: Patient Exam Limitations: No limitations - Personal History Current Tetanus Diphtheria and Acellular Pertussis (TDAP): Yes Tetanus Vaccine Date: less than 5 years - Medical/Surgical History Hx Asthma: Yes Hx Chronic Respiratory Disease: No Hx Diabetes: No Hx Cardiac Disease: No Hx Renal Disease: No Hx Cirrhosis: No Hx Alcoholism: No Hx HIV/AIDS: No Hx Splenectomy or Spleen Trauma: No Other PMH: BPH, GERD, heart murmur, asthma. bilateral ACL repairs, left lower leg ORIF. lap choley - Social History Smoking Status: Never smoked Time Seen by Provider: 07/25/16 11:55 HPI/ROS: CHIEF COMPLAINT: urinary retention HISTORY OF PRESENT ILLNESS: 81-year-old male presents emergency department with urinary retention. Patient had a cholecystectomy [address] Ling. He reports he has had difficulty urinating since this time with frequency and only able to urinate little bit at a time. Patient reports no abdominal pain, he does feel like his bladder is full. He denies nausea or vomiting. Patient is taking Vicodin for pain and he has a known enlarged prostate. REVIEW OF SYSTEMS: A comprehensive 10 point review of systems is otherwise negative aside from elements mentioned in the history of present illness. (Pilar Dyer) Constitutional: Initial Vital Signs Temperature (C) 36.3 C 07/25/16 11:37 Heart Rate 88 07/25/16 11:37 Respiratory Rate 18 07/25/16 11:37 Blood Pressure 164/78 H 07/25/16 11:37 O2 Sat (%) 95 07/25/16 11:37 O2 Delivery Mode Room Air Allergies/Adverse Reactions: Penicillins Allergy (Verified 07/18/16 21:04) Home Medications: Medication Instructions Recorded Omeprazole [Prilosec 20 mg] 20 mg PO DAILY 07/05/16 Beclomethasone Qvar 80 [Qvar 80 1 puffs IH BIDI 07/18/16 (*)] Finasteride [Proscar 5 MG (*)] 5 mg PO DAILY 07/18/16 Fluticasone Nasal [Flonase Nasal 1 sprays NASAL BID 07/18/16 [place]] Acetaminophen [Tylenol 325mg (*)] 650 mg PO Q4HRS PRN #0 tab 07/21/16 Hydrocodone/APAP 5/325 [[place] 1 tab PO Q4 PRN #9 tab 07/21/16 5/325 (*)] Polyethylene Glycol 3350 [Miralax 17 gm PO DAILY PRN #0 pkt 07/21/16 17 gm (*)] Medical Decision Making ED Course/Re-evaluation: 81-year-old male presents with urinary retention status post cholecystectomy by Dr. Ling 5 days ago. Bladder scan shows 500 mL. Urinalysis is negative for infection, Colvin catheter was placed and patient was given a leg bag with instructions. 1pm- I spoke with Dr. Ling. He agrees with plan for Colvin catheter and will see the patient earlier than Tuesday in the office. The patient will call his office tomorrow to schedule this appointment. (Pilar Dyer) I did not see this patient while he was in the emergency department. However his care was discussed with the nurse practitioner while the patient was in the department. I agree with treatment plan and management (Valerio Whitley) Differential Diagnosis: Diagnosis considered but not limited to urinary retention due to narcotics, enlarged prostate, blockage, UTI, renal calculi. (Pilar Dyer) Departure - Departure Disposition: Home, Routine, Self-Care Clinical Impression: Urinary retention Condition: Good Instructions: Urinary Retention in Men (ED), Colvin Catheter Placement and Care (ED) Additional Instructions: Keep your catheter in place until you follow up with Dr. Ling. Call his office tomorrow and schedule an appointment to be seen earlier than Tuesday. Return to the emergency department for any fevers, vomiting, if you're catheter is not draining urine, any other questions or concerns. Referrals: Ilan Ling MD [Medical Doctor] - As per Instructions
[2016-07-25] MEDS ORDERED: LIDOCAINE 2% JELLY 20 ML (UROJECT) ONE (13:15)
[2016-07-25 13:50] VITALS: BP 128/78; PULSE 72; RESP 16; TEMP 98.4; O2SAT 96
== END 2016-07-25 13:50 | disposition home or self-care (01) ==
PROC: 0T9B70Z Drainage of Bladder with Drainage Device, Via Natural or Artificial Opening (ICD-10-PCS; principal; 2016-07-25)
DX: R33.9 Retention of urine, unspecified (principal); J45.909 Unspecified asthma, uncomplicated